=== PATIENT | female | born 1995 | race Two or more races ===

== ENCOUNTER 2021-12-17 08:00 | Outpatient (CLI) | payer OTHER ==
[2021-12-17 22:36] LABS: BACTERIAL VAGINOSIS DNA POSITIVE (NEGATIVE); CANDIDA GLABRATA DNA NEGATIVE (NEGATIVE); CANDIDA GROUP DNA NEGATIVE (NEGATIVE); CANDIDA KRUSEI DNA NEGATIVE (NEGATIVE); TRICHOMONAS VAGINALIS DNA NEGATIVE (NEGATIVE)
== END 2021-12-17 08:01 | disposition home or self-care (01) ==
LOC: LAB 08:00
PROVIDERS: ATTEND Obstetrics & Gynecology
DX: N76.0 Acute vaginitis (principal)
CPT/HCPCS: 81514

== ENCOUNTER 2022-01-17 08:00 | Outpatient (CLI) | payer OTHER | END 2022-01-17 23:59 | disposition home or self-care (01) | LOC: LAB.N 08:00 | PROVIDERS: ATTEND Family Medicine | DX: U07.1 COVID-19 (principal) ==

== ENCOUNTER 2022-01-17 19:25 | Emergency (ER) | payer OTHER ==
--- NOTE | 2022-01-17 20:21 | ED Physician Documentation ---
PD HPI CHEST PAIN - Stated complaint Stated Complaint: CHEST TIGHT,TINGLING,LIGHT HEADED - Chief complaint Chief Complaint: Cardiac - History obtained from History obtained from: Patient - Additional information Additional information: 26-year-old woman got sick about a week ago with cough and cold symptoms. Her nasal congestion is persistent but her cough is improving. She did have a fever of 101 yesterday and starting yesterday has had central chest tightness and lightheadedness that has been persistent all day. She noted today over the last 5 hours she has had tingling in the fingers of both hands. It is symmetric. She denies any possibility of . No shortness of breath. No pedal edema or calf pain. She is not on hormonal control. No recent travel. Family history is notable for a father had a cardiac related arrest that was successfully resuscitated related to asthma but no coronary disease in first- degree relatives. Review of Systems Ten Systems: 10 systems reviewed and negative Constitutional: reports: Fever (Yesterday, not today) Nose: reports: Rhinorrhea / runny nose, Congestion Throat: denies: Sore throat Respiratory: reports: Cough. denies: Dyspnea PD PAST MEDICAL HISTORY - Allergies Allergies/Adverse Reactions: Allergies Allergy/AdvReac Type Severity Reaction Status Date / Time No Known Drug Allergies Allergy Verified 01/17/22 19:37 PD ED PE NORMAL - Vitals Vital signs reviewed: Yes - General General: Alert and oriented X 3, No acute distress - HEENT HEENT: Ears normal, Pharynx benign - Neck Neck: Supple, no meningeal sign, No bony TTP - Cardiac Cardiac: RRR, No murmur - Respiratory Respiratory: No respiratory distress, Clear bilaterally - Abdomen Abdomen: Non tender - Derm Derm: Normal color, Warm and dry, No rash - Extremities Extremities: No edema, No calf tenderness / cord - Neuro Neuro: Alert and oriented X 3, head start director 2-12 intact, No motor deficit, No sensory deficit, Normal speech Eye Opening: Spontaneous Motor: Obeys Commands Verbal: Oriented GCS Score: 15 Results - Vitals Vitals: Vital Signs - 24 hr 01/17/22 01/17/22 19:32 19:57 Temperature 36.7 C Heart Rate 92 83 Respiratory 16 18 Rate Blood Pressure 137/90 H 122/78 O2 Saturation 100 99 Oxygen O2 Source Room air - EKG (time done) 1951 Rate: Rate (enter#) (97) Rhythm: NSR [place]: Normal Intervals: Normal CT QRS: Normal Ischemia: Normal ST segments Computer interpretation: Agree with computer - Labs Labs: Laboratory Tests 01/17/22 01/17/22 20:22 20:22 WBC 3.0 L RBC 4.48 Hgb 13.1 Hct 39.9 MCV 89.1 MCH 29.2 MCHC 32.8 RDW 13.2 Plt Count 133 MPV 10.4 Neut # (Auto) 1.3 L Lymph # (Auto) 1.3 L [place] # (Auto) 0.4 Eos # (Auto) 0.0 Baso # (Auto) 0.0 Absolute Nucleated RBC 0.00 Nucleated RBC % 0.0 Sodium 138 Potassium 3.6 Chloride 101 Carbon Dioxide 26 Anion Gap 11.0 BUN 15 Creatinine 0.8 Estimated GFR (MDRD) 88 L Glucose 74 Calcium 8.7 Magnesium 2.2 - Rads (name of study) 2 view chest x-ray is unremarkable Radiology: EMP read contemporaneously PD MEDICAL DECISION MAKING - ED course ED course: 26-year-old woman with very atypical chest pain and now concerning to her is tingling of both fingers. PE is considered, that said she has chest tightness without any pleuritic chest pain and no shortness of breath or other risk factors for PE. Her EKG is not ischemic. No radiation to suggest dissection. Departure - Departure Disposition: 01 Home, Self Care Clinical Impression: Chest pain, Viral syndrome Condition: Good Record reviewed to determine appropriate education?: Yes Instructions: ED Viral Syndrome Comments: Lab work is normal with the exception of a low white count which is consistent with a viral syndrome. Everything else is looking good. Return for new or worsening symptoms. Follow-up with your primary care physician, next available appointment.
[2022-01-17 20:30] LABS: EOSINOPHILS % (AUTO) 0.3 %
[2022-01-17 20:38] LABS: BASOPHILS % (AUTO) 0.7 %; CALCIUM 8.7 mg/dL (8.5-10.3); CREATININE 0.8 mg/dL (0.4-1.0); HCT - HEMATOCRIT 39.9 % (37.0-47.0); HGB - HEMOGLOBIN 13.1 g/dL (12.0-16.0); LYMPHOCYTES # (AUTO) 1.3 10^3/uL (1.5-3.5); LYMPHOCYTES % (AUTO) 43.6 %; MAGNESIUM 2.2 mg/dL (1.7-2.8); MEAN CORPUSCULAR HEMOGLOBIN 29.2 pg (27.0-31.0); MEAN CORPUSCULAR HGB CONC 32.8 g/dL (32.0-36.0); MEAN CORPUSCULAR VOLUME 89.1 fL (81.0-99.0); MEAN PLATELET VOLUME 10.4 fL (7.9-10.8); MONOCYTES # (AUTO) 0.4 10^3/uL (0.0-1.0); MONOCYTES % (AUTO) 12.1 %; NEUTROPHILS # (AUTO) 1.3 10^3/uL (1.5-6.6); PLT - PLATELET COUNT 133 10^3/uL (130-450); POTASSIUM 3.6 mmol/L (3.5-5.0); RED BLOOD COUNT 4.48 10^6/uL (4.20-5.40); RED CELL DISTRIBUTION WIDTH 13.2 % (12.0-15.0)
--- NOTE | 2022-01-17 20:52 | XRAY Report ---
PROCEDURE: Chest 2 View X-Ray INDICATIONS: chest tight TECHNIQUE: 2 views of the chest. COMPARISON: None. FINDINGS: Surgical changes and devices: None. Lungs and pleura: No pleural effusions or pneumothorax. Lungs are clear. Mediastinum: Mediastinal contours are normal. Heart size is normal. Bones and chest wall: No suspicious bony abnormalities. Soft tissues appear unremarkable. IMPRESSION: 1. No acute cardiopulmonary disease. Reviewed by: Ken Graves MD on 01/17/2022 8:51 PM PDT Approved by: Ken Graves MD on 01/17/2022 8:51 PM PDT Station ID: [id number]
[2022-01-17 21:27] VITALS: BP 117/82
== END 2022-01-17 21:27 | disposition home or self-care (01) ==
LOC: ED 19:25
DX: R07.89 Other chest pain (principal); B34.9 Viral infection, unspecified
CPT/HCPCS: 36415; 80048; 83735; 85025; 93005; 99281; 99284

== ENCOUNTER 2022-05-02 08:00 | Outpatient (CLI) | payer OTHER | END 2022-05-02 23:59 | disposition home or self-care (01) | LOC: LAB.N 08:00 | PROVIDERS: ATTEND Physician Assistant Medical | DX: N30.00 Acute cystitis without hematuria (principal) | CPT/HCPCS: 87086 ==

== ENCOUNTER 2022-05-08 07:54 | Emergency (ER) | payer OTHER ==
--- NOTE | 2022-05-08 09:36 | ED Physician Documentation ---
PD HPI HEADACHE - Stated complaint Stated Complaint: HEAD PX - Chief complaint Chief Complaint: Neuro - History obtained from History obtained from: Patient - History of Present Illness Timing - onset: How many days ago (3 1/2) Timing - onset during: Light activity Timing - duration: Days Timing - details: Gradual onset, Waxing and waning Location: Back, Right Quality: Throbbing, Aching Associated symptoms: Nausea. No: Fever, Stiff neck, Vomiting, Weakness, Numbness, Eye pain, Vision changes Improved by: No: Meds (OTC Tylenol would help for few hours then returns.) Worsened by: Noise (mildly) Contributing factors: No: Recent illness, Trauma Similar symptoms before: No diagnosis (has had some occasional headaches similar but usually improve with Tylenol. This is more consistent/persistent.) Recently seen: Clinic (had some dysuria last week and seen in clinic with Dx UTI. Rx Bactrim 5 days and symptoms improved after 2-3 days.) Review of Systems Constitutional: denies: Fever, Chills, Myalgias Eyes: denies: Loss of vision, Decreased vision Nose: denies: Rhinorrhea / runny nose, Congestion Throat: denies: Sore throat Respiratory: denies: Cough GI: reports: Nausea. denies: Abdominal Pain, Vomiting, Diarrhea Skin: denies: Rash, Lesions Musculoskeletal: denies: Neck pain, Back pain Neurologic: denies: Focal weakness, Numbness PD PAST MEDICAL HISTORY - Past Medical History Cardiovascular: None Respiratory: None Neuro: Headaches (intermittent) Endocrine/Autoimmune: None - Past Surgical History Past Surgical History: No - Present Medications Home Medications: Ambulatory Orders Medication Instructions Recorded Confirmed HYDROcod/ACETAM 5/325 [[place] 5/325] 1 ea PO Q6H PRN #15 tablet 05/08/22 tiZANidine [Zanaflex] 4 mg PO Q8H PRN #15 tablet 05/08/22 - Allergies Allergies/Adverse Reactions: Allergies Allergy/AdvReac Type Severity Reaction Status Date / Time No Known Drug Allergies Allergy Verified 05/08/22 10:45 - Social History Does the pt smoke?: No Smoking Status: Never smoker Does the pt drink ETOH?: Yes Does the pt have substance abuse?: No - POLST Patient has POLST: No PD ED PE NORMAL - Vitals Vital signs reviewed: Yes - General General: Alert and oriented X 3, No acute distress, Well developed/nourished - HEENT HEENT: PERRL, EOMI (mildly light sensitive) - Neck Neck: Supple, no meningeal sign, No adenopathy - Cardiac Cardiac: RRR, No murmur - Respiratory Respiratory: Clear bilaterally - Abdomen Abdomen: Soft, Non tender - Derm Derm: Normal color, Warm and dry - Neuro Neuro: Alert and oriented X 3, beet flumer 2-12 intact, No motor deficit, No sensory deficit, Normal speech, Other Results - Vitals Vitals: Oxygen O2 Source Room air - Labs Labs: Laboratory Tests 05/08/22 05/08/22 10:06 10:06 WBC 5.2 RBC 4.92 Hgb 14.6 Hct 44.1 MCV 89.6 MCH 29.7 MCHC 33.1 RDW 13.1 Plt Count 143 MPV 10.2 Neut # (Auto) 4.0 Lymph # (Auto) 0.6 L [place] # (Auto) 0.5 Eos # (Auto) 0.0 Baso # (Auto) 0.0 Absolute Nucleated RBC 0.00 Nucleated RBC % 0.0 Sodium 140 Potassium 4.2 Chloride 105 Carbon Dioxide 25 Anion Gap 10.0 BUN 13 Creatinine 0.9 Estimated GFR (MDRD) 76 L Glucose 85 Calcium 9.3 Total Bilirubin 0.9 AST 19 ALT 20 Alkaline Phosphatase 56 Total Protein 7.7 Albumin 4.9 Globulin 2.8 Albumin/Globulin Ratio 1.8 Lipase 29 PD MEDICAL DECISION MAKING - ED course Complexity details: reviewed results (chemistries are good. her recent urine culture was no growth, so I did not repeat to see if cleared since wasn't a UTI. ), re-evaluated patient (headache improved with migraine/functional headache targeted meds. ), considered differential (no real flags for more serious cause. I would defer CT imaging at this time and patient agrees. No real indication /suspicion for needing LP (not seeming infectious and was not abrupt onset, no focal deficits). ), d/w patient Departure - Departure Disposition: 01 Home, Self Care Clinical Impression: Occipital headache Condition: Stable Record reviewed to determine appropriate education?: Yes Instructions: ED Cephalgia Unspecified Prescriptions: HYDROcod/ACETAM 5/325 [[place] 5/325] 1 ea PO Q6H PRN #15 tablet PRN Reason: Pain tiZANidine [Zanaflex] 4 mg PO Q8H PRN #15 tablet PRN Reason: Spasms Comments: Your headache improved quite well with just anti-inflammatory and a nausea medi cine. This combination typically targets functional headache such as migraines and atypical migraines. I would feel that this is the cause of your headache at this time. It does not seem infectious or structural etc. At I would not feel compelled for further testing such as CT scan or lumbar puncture. I would go with the idea of a functional headache and use some Tylenol ibuprofen if needed for any residual headache through the day today. You can add tizanidine if feeling like some neck stiffness or muscle spasming as a component. Add hydrocodone/acetaminophen if needed for worse headache of the same character. Return if generally worse or other new symptoms associated with the headache. Follow-up with your primary care. Off work today make sense. I transmitted prescriptions to [facility] in [place]. I am prescribing a short course of narcotic pain medication for you. These are potentially dangerous and addictive medications that should be used carefully. These medications may constipate you. Take an [id number] stool softener such as docusate twice daily with plenty of water while taking these medications. If you go 24 hours without a bowel movement, take [id number] MiraLAX, per package instructions. Do not drink or drive while taking these medications. If you received narcotic or sedating medications while in the emergency department do not drive for 24 hours. Store this medication in a safe, secure place and out of reach of children. It is a violation of federal law to give or sell this medication to another person or to use in a manner other than prescribed. The ED will not refill narcotic prescriptions, including prescriptions lost or stolen. You can dispose of unwanted medications at the [facility]'s office or at several pharmacies such as [facility]. Forms: Activity restrictions Discharge Date/Time: 05/08/22 11:47
[2022-05-08] MEDS ORDERED: SODIUM CHLORIDE 0.9% 1,000 ML IV STA (10:00)
[2022-05-08] MEDS ORDERED: KETOROLAC 15 MG/ML VIAL IVP STA (10:00)
[2022-05-08] MEDS ORDERED: PROCHLORPERAZINE 10 MG/2 ML VIAL IVP STA (10:00)
[2022-05-08 10:10] LABS: BASOPHILS % (AUTO) 0.2 %; EOSINOPHILS % (AUTO) 0.2 %; HCT - HEMATOCRIT 44.1 % (37.0-47.0); HGB - HEMOGLOBIN 14.6 g/dL (12.0-16.0); LYMPHOCYTES # (AUTO) 0.6 10^3/uL (1.5-3.5); MEAN CORPUSCULAR HEMOGLOBIN 29.7 pg (27.0-31.0); MEAN CORPUSCULAR HGB CONC 33.1 g/dL (32.0-36.0); MEAN CORPUSCULAR VOLUME 89.6 fL (81.0-99.0); MEAN PLATELET VOLUME 10.2 fL (7.9-10.8); MONOCYTES # (AUTO) 0.5 10^3/uL (0.0-1.0); MONOCYTES % (AUTO) 10.1 %; NEUTROPHILS % (AUTO) 77.3 %; PLT - PLATELET COUNT 143 10^3/uL (130-450); RED BLOOD COUNT 4.92 10^6/uL (4.20-5.40); RED CELL DISTRIBUTION WIDTH 13.1 % (12.0-15.0); WHITE BLOOD COUNT 5.2 x10^3/uL (4.8-10.8)
[2022-05-08 10:24] LABS: ALBUMIN 4.9 g/dL (3.2-5.5); ALBUMIN/GLOBULIN RATIO 1.8 (1.0-2.2); BILIRUBIN,TOTAL 0.9 mg/dL (0.2-1.0); CALCIUM 9.3 mg/dL (8.5-10.3); CREATININE 0.9 mg/dL (0.4-1.0); POTASSIUM 4.2 mmol/L (3.5-5.0); TOTAL PROTEIN 7.7 g/dL (6.7-8.2)
[2022-05-08 11:47] VITALS: BP 121/80
== END 2022-05-08 11:47 | disposition home or self-care (01) ==
LOC: ED 07:54
DX: G44.89 Other headache syndrome (principal)
CPT/HCPCS: 36415; 80053; 83690; 85025; 96374; 96375; 99282

== ENCOUNTER 2022-11-07 21:13 | Emergency (ER) | payer OTHER ==
[2022-11-07 22:33] VITALS: BP 123/86
--- NOTE | 2022-11-07 22:55 | ED Physician Documentation ---
History of Present Illness - Stated complaint Stated Complaint: L LEG SWELLING - Chief complaint Chief Complaint: Ext Problem - History obtained from History obtained from: Patient - Additonal information Additional information: HPI from patient. Patient c/o left lower extremity focal bruising and swelling with mild tenderness. She denies injury, and does not recall any inciting factors nor circumstances. She initially noticed the bruising/swelling five days ago, and presents at this time out of concern for its persistence rather than worsening. Review of Systems Cardiac: denies: Chest pain / pressure Respiratory: denies: Dyspnea Musculoskeletal: reports: Extremity pain, Extremity swelling. denies: Pain with weight bearing PD PAST MEDICAL HISTORY - Past Medical History Cardiovascular: None Respiratory: None Neuro: Headaches Endocrine/Autoimmune: None - Past Surgical History Past Surgical History: No - Present Medications Home Medications: Ambulatory Orders Medication Instructions Recorded Confirmed cephALEXin [Keflex] 500 mg PO Q6H 11/07/22 11/07/22 - Allergies Allergies/Adverse Reactions: Allergies Allergy/AdvReac Type Severity Reaction Status Date / Time No Known Drug Allergies Allergy Verified 11/07/22 21:21 - Social History Does the pt smoke?: No Smoking Status: Never smoker Does the pt drink ETOH?: Yes Does the pt have substance abuse?: No - Immunizations Immunizations are current?: Yes - POLST Patient has POLST: No PD ED PE NORMAL - Vitals Vital signs reviewed: Yes - General General: Alert and oriented X 3, No acute distress, Well developed/nourished PD ED PE EXPANDED - Extremities CONCETTA LE visual: 1 - bruising, swelling, tenderness (mild TTP) Results - Vitals Vitals: Oxygen O2 Source Room air - Rads (name of study) LLE US with color flow doppler Relevant Findings:: Prelim report reviewed, See rad report PD Medical Decision Making - ED course Complexity details: reviewed results, re-evaluated patient, considered differential, d/w patient ED course: atraumatic and localized left lower extremity echymosis and swelling. While the focality would make DVT unlikely, there is subtle swelling distal to the area of concern that extends to the ankle and foot, and thus out of abundance of caution, LLE US is performed. There are no concerning / diagnostic findings on this study; specifically, no evidence of DVT. Exam is not suggestive of infectious etiology (no erythema, no fluctuance, no abnormal warmth/heat to touch). Results d/w patient. Cause of her symptoms/signs is not apparent at this time. Return precautions discussed. Departure - Departure Disposition: 01 Home, Self Care Clinical Impression: Unilateral edema of lower extremity Condition: Good Instructions: ED Leg Swelling Unilateral Comments: The ultrasound of your left leg was unremarkable; specifically, there is no evidence of a blood clot (DVT, or even deep vein thrombosis). As we discussed, that the swelling and bruising is focal in nature (as opposed to from an area of your leg and down to the toes) it is reassuring and would generally not suggest a concerning cause. If your symptoms persist beyond the next 3 to 5 days, I recommend you contact your primary care provider to arrange for next available appointment for reevaluation. Otherwise, if over the next several days, the bruising and swelling go down without any specific intervention, you would not require expeditious follow up/reevaluation. Note that the discharge instructions provided in this packet are for unilateral swelling of the leg, but mostly apply to when the swelling and/or discomfort is circumferential and from an area of 1 leg down to the toes. The other words, most of the possible causes of the symptoms that are listed on these discharge instructions are not applicable to your situation. Discharge Date/Time: 11/07/22 23:13
--- NOTE | 2022-11-07 23:16 | Ultrasound Report ---
PROCEDURE: Duplex Ext Veins Left INDICATIONS: calf pain, swelling, ecchymosis TECHNIQUE: Real-time imaging, as well as color and pulse Doppler interrogation, were performed of the lower extr emity deep veins from the inguinal ligament to the popliteal fossa. COMPARISON: None. FINDINGS: The deep veins are normally compressible, and free of intraluminal thrombus. Color and pu lse Doppler demonstrate normal phasic intraluminal flow. There is normal augmentation response to di stal compression maneuver. IMPRESSION: 1. No evidence of deep venous thrombosis in the left lower extremity. Reviewed by: Ken Feliciano MD on 11/07/2022 11:15 PM PST Approved by: Ken Feliciano MD on 11/07/2022 11:15 PM PST Station ID: [id number]
== END 2022-11-07 23:13 | disposition home or self-care (01) ==
LOC: ED 21:13
DX: R60.0 Localized edema (principal)
CPT/HCPCS: 99283; 99284

== ENCOUNTER 2023-05-17 08:00 | Outpatient (CLI) | payer SELFPAY ==
[2023-05-17 18:43] LABS: BILIRUBIN,URINE NEGATIVE (NEGATIVE); GLUCOSE, URINE (UA) NEGATIVE (NEGATIVE); KETONES,URINE (UA) NEGATIVE (NEGATIVE); LEUKOCYTE ESTERASE, URINE NEGATIVE (NEGATIVE); NITRITE,URINE NEGATIVE (NEGATIVE); OCCULT BLOOD,URINE NEGATIVE (NEGATIVE); PROTEIN,URINE NEGATIVE (NEGATIVE); UROBILINOGEN,URINE 0.2 (NORMAL) E.U./dL (NORMAL)
[2023-05-17 18:51] LABS: CLARITY,URINE CLEAR (CLEAR)
[2023-05-17 22:19] LABS: BACTERIAL VAGINOSIS DNA POSITIVE (NEGATIVE); CANDIDA GLABRATA DNA NEGATIVE (NEGATIVE); CANDIDA GROUP DNA NEGATIVE (NEGATIVE); CANDIDA KRUSEI DNA NEGATIVE (NEGATIVE); TRICHOMONAS VAGINALIS DNA NEGATIVE (NEGATIVE)
== END 2023-05-17 23:59 | disposition home or self-care (01) ==
LOC: LAB.N 08:00
PROVIDERS: ATTEND Nurse Practitioner
DX: N89.8 Other specified noninflammatory disorders of vagina (principal)
CPT/HCPCS: 81001; 81003; 81514; 87086